=== PATIENT | male | born 1970 ===

== ENCOUNTER → 2022-11-17 06:00 | Outpatient (CLI) | payer OTHER ==
[~2022-11-17] VITALS: Ht 175.3 cm; Wt 99.8 kg
[~2022-11-17 06:00] MED LIST: AMBIEN10 MG PO; CLONAZEPAM0.25 MG PO; HYDRODIURIL12.5 MG PO; NIFEDIPINE20 MG PO; TOPROL XL200 MG PO; TRAZODONE HCL50 MG PO; ZOLOFT100 MG PO
== END | disposition home or self-care (01) ==
LOC: LAB 06:00 → ADM 10:15 → EDSTATUS 11-18 10:15 → CIR.AMB 11-18 10:15
PROVIDERS: ATTEND Surgery
DX: R22.0 Localized swelling, mass and lump, head (principal)